=== PATIENT | male | born 1995 | race Caucasian/White ===

== ENCOUNTER 2017-04-05 18:04 | Emergency (ER) | payer OTHER ==
--- NOTE | 2017-04-05 18:45 | ER PHYSICIAN DOCUMENTATION ---
Physician Documentation [facility] Name:Jc Jackson Age:21 yrs Sex:Male :1995 Arrival Date:04/05/2017 Time:18:04 Bed5 Private MD: Aristides Vazquez Disposition: 04/05/17 18:30 Discharged to Home/Self Care. Impression: Ankle Sprain. - Condition is Good. - Discharge Instructions: Ankle - SPRAIN ANKLE (w/ x-ray). - Medical Reconciliation form form. - Follow up: Private Physician; When: As needed; Reason: Continuance of care. - Problem is new. - Symptoms have improved. HPI: 04/05 18:17 This 21 yrs old Male presents to ER via Private Vehicle with complaints of jm Leg Injury - RIGHT LEG. 18:17 The patient presents with an injury, pain. The complaints affect the right ankle. jm Context: resulted from the patient falling, bouldering, the patient is not able to bear weight. Onset: The symptom(s)/episode began/occurred 5 hour(s) ago. Treatment prior to arrival includes: splinting the affected extremity. The patient has not experienced similar symptoms in the past. Historical: - Allergies: No known drug Allergies; - Home Meds: 1. None - PSHx: None; - Tetanus: < 10 years. - Ebola Screening: : Patient negative for fever greater than or equal to 101.5 degrees Fahrenheit, and additional compatible Ebola Virus Disease symptoms. Patient denies exposure to infectious person. Patient denies travel to an Ebola-affected area in the 21 days before illness onset. . - Immunization history: Flu Vaccine < 1 year. - Social history: Smoking status: Patient states was never smoker of tobacco. ROS: 18:18 Constitutional: Negative for fever. jm 18:18 MS/extremity: Positive for swelling, tenderness. 18:18 Skin: Positive for rash, swelling. 18:18 Neuro: Negative for weakness. Exam: 18:18 Constitutional: The patient appears alert, awake. jm 18:18 ENT: Mouth: is normal. 18:18 Musculoskeletal/extremity: Extremities: grossly normal except: noted in the right medial malleolus: ecchymosis, pain, swelling, tenderness, Pulses: are normal with no appreciated deficits, Sensation intact. 18:18 Skin: Appearance: Color: pink, ecchymosis, noted on the, right ankle and anterior aspect of right ankle, that are moderate, of the anterior aspect of right ankle, injury, laceration(s), are not present. 18:18 Neuro: Mentation: is normal, Memory: is normal. 18:18 Psych: Behavior/mood is pleasant, cooperative, Affect is calm. Vital Signs: 18:15 BP 127 / 72; Pulse 118; Resp 16; Temp 98.5(TE); Pulse Ox 97% on R/A; Weight 77.11 kg; rh Height 5 ft. 9 in. (175.26 cm); Pain 3/10; 18:15 Body Mass Index 25.10 (77.11 kg, 175.26 cm) rh MDM: 18:08 Patient medically screened. 04/06 07:49 Order name: ANKLE; [address] [id number] EDMS Dispensed Medications: No medications were administered Signatures: Yen Brantley RN RN lp Meyer, John, MD MD jm Hofsess, Rachel
--- NOTE | 2017-04-05 18:45 | ER NURSING DOCUMENTATION ---
Nurse's Notes [facility], [place] Name:Jc Jackson Age:21 yrs Sex:Male :1995 Arrival Date:04/05/2017 Time:18:04 Bed5 Private MD: Diagnosis:Ankle Sprain Presentation: 04/05 18:06 Acuity: KAREN 3 rh 18:10 Presenting complaint: Patient states: R ankle injury. Transition of care: Home. rh 18:10 Method Of Arrival: Private Vehicle rh 18:11 Transition of care: Other [place] service. Triage Assessment: 18:12 General: Appears in no apparent distress, Behavior is appropriate for age. Pain: rh Complains of pain in anterior aspect of right ankle Pain currently is 4 out of 10 on a pain scale. Cardiovascular: Pulses are all present. Musculoskeletal: Circulation, motion, and sensation intact Capillary refill < 3 seconds Swelling present in right ankle and anterior aspect of right ankle. Injury Description: FAll. Historical: - Allergies: No known drug Allergies; - Home Meds: 1. None - PSHx: None; - Tetanus: < 10 years. - Ebola Screening: : Patient negative for fever greater than or equal to 101.5 degrees Fahrenheit, and additional compatible Ebola Virus Disease symptoms. Patient denies exposure to infectious person. Patient denies travel to an Ebola-affected area in the 21 days before illness onset. . - Immunization history: Flu Vaccine < 1 year. - Social history: Smoking status: Patient states was never smoker of tobacco. Screenin:15 Infectious Disease Risk None. Abuse screen: Denies threats or abuse. Denies injuries rh from another. Nutritional screening: No deficits noted. Assessment: 18:15 See Triage Assessment done by same RN. rh Vital Signs: 18:15 BP 127 / 72; Pulse 118; Resp 16; Temp 98.5(TE); Pulse Ox 97% on R/A; Weight 77.11 kg; rh Height 5 ft. 9 in. (175.26 cm); Pain 3/10; 18:15 Body Mass Index 25.10 (77.11 kg, 175.26 cm) rh ED Course: 18:05 Patient arrived in ED. ds 18:06 Allegra Becker is Primary Nurse. 18:06 Triage completed. 18:08 Aristides Powell MD is Attending Physician. 18:[address] Powell notified. rh 18:15 Valuables Remains with patient Patient has correct armband on for positive rh identification. Bed in low position. Call light in reach. Side rails up X 1. 18:29 Port Xray Completed. timi Administered Medications: No medications were administered Outcome: 18:30 Discharge ordered by . 18:42 Discharged to home with crutches. lp 18:42 Condition: good 18:42 Instructed on crutch walking, discharge instructions, follow up and referral plans. medication usage. 18:44 Patient left the ED. lp 04/06 16:15 Discharge F/U Call: Unable to reach: no answer st Signatures: Marti Whyte RN RN Yen Salgado RN RN lp Srot, Amie, Reg Aristides Paul MD MD jm Abbott, [facility]
--- NOTE | 2017-04-06 06:17 | RADIOLOGY REPORT ---
Three views of the right ankle demonstrate no displaced fracture or dislocation. The visualized joints appear unremarkable. IMPRESSION: No displaced injury is identified. If clinically indicated, further evaluation and/or follow-up may be of benefit. BAILEY
== END 2017-04-05 18:45 | disposition home or self-care (01) ==
LOC: ER 18:04
DX: S96.911A Strain of unspecified muscle and tendon at ankle and foot level, right foot, initial encounter (principal); W19.XXXA Unspecified fall, initial encounter; Y92.838 Other recreation area as the place of occurrence of the external cause; Y93.31 Activity, mountain climbing, rock climbing and wall climbing
CPT/HCPCS: 99283